=== PATIENT | female | born 1990 | race Caucasian/White ===

== ENCOUNTER 2022-05-21 10:43 | Outpatient (REF) | payer MEDICAID, SELFPAY ==
[2022-05-21 13:49] LABS: MANUAL DIFF FLAG NO
[2022-05-21 13:55] LABS: Basophils Absolute Auto 0.1 X10*3/uL (0.0-0.2); Basophils Percent Auto 0.9 % (0-2); Eosinophils Absolute Auto 0.2 X10*3/uL (0.0-0.4); Eosinophils Percent Auto 3.1 % (0-4); Hematocrit 37.5 % (37.0-47.0); Hemoglobin 11.9 g/dl (12.0-16.0); Imm Gran Abs Auto 0.02 X10*3/uL (0.00-0.03); Imm Gran Pct Auto 0.3 % (0.0-0.4); Lymphocytes Absolute Auto 2.4 X10*3/uL (1.2-4.9); Lymphocytes Percent Auto 30.8 % (20-40); Mean Corpuscular HGB Conc 31.7 g/dl (31.0-35.0); Mean Corpuscular Hemoglobin 29.7 pg (27.0-33.0); Mean Corpuscular Volume 93.5 fL (80.0-98.0); Mean Platelet Volume 11.7 fL (9.4-12.3); Monocytes Absolute Auto 0.5 X10*3/uL (0.1-1.2); Monocytes Percent Auto 5.9 % (2-11); Neutrophils Absolute Auto 4.6 x10*3/uL (2.0-8.3); Platelet Count 191 X10*3/uL (160-400); Red Blood Count 4.01 X10*6/uL (4.20-5.50); Red Cell Distribution Width 12.8 % (11.0-16.0); White Blood Count 7.8 X10*3/uL (4.8-10.8)
[2022-05-21 14:08] LABS: Alanine Aminotransferase 10 U/L (0-31); Albumin Level 4.3 g/dL (3.5-5.0); Alkaline Phosphatase 68 U/L (39-117); Anion Gap 14 (12-20); Aspartate Amino Transferase 12 U/L (5-31); Bilirubin Total 0.6 mg/dL (0.0-1.0); Blood Urea Nitrogen 12 mg/dL (9-16); Calcium 9.1 mg/dL (8.4-10.2); Carbon Dioxide 23 mmol/L (22-29); Chloride 107 mmol/L (96-108); Estimated Glomerular Filt Rate > 60; Glucose Fasting 74 mg/dL (60-99); Potassium 4.2 mmol/L (3.3-5.1); Sodium 140 mmol/L (135-145); Total Protein 6.3 g/dL (6.5-8.0)
[2022-05-21 14:28] LABS: Thyroid Stimulating Hormone 0.83 uIU/mL (0.32-4.0)
== END 2022-05-21 10:44 | disposition home or self-care (01) ==
LOC: HO.10HDL 10:43
PROVIDERS: Visit Provider Internal Medicine
DX: Z00.00 Encounter for general adult medical examination without abnormal findings (principal); F12.10 Cannabis abuse, uncomplicated; F32.9 Major depressive disorder, single episode, unspecified; Z11.3 Encounter for screening for infections with a predominantly sexual mode of transmission; Z12.4 Encounter for screening for malignant neoplasm of cervix; Z72.0 Tobacco use
CPT/HCPCS: 36415; 80053; 84443; 85025

== ENCOUNTER 2024-01-25 09:52 | Outpatient (REF) | payer MEDICAID, SELFPAY ==
--- NOTE | ~2024-01-25 | XR_ITS ---
EXAMINATION: XR KNEE, LEFT CLINICAL INFORMATION: Pain in unspecified knee COMPARISON: None available. TECHNIQUE: AP standing view both knees and lateral sunrise views of the left knee FINDINGS: No fracture. Small joint effusion. Alignment is anatomic. Joint spaces are maintained. No abnormal soft tissue calcification. Incidental note is made of a 0.9 cm osteochondroma extending off the medial aspect of the distal right femoral shaft. XR/XR knee LT 3V IMPRESSION: 1. No acute bony abnormality. 2. Small joint effusion.
== END 2024-01-25 09:53 | disposition home or self-care (01) ==
LOC: HO.HOSX 09:52
PROVIDERS: Visit Provider Physician Assistant
DX: M23.92 Unspecified internal derangement of left knee (principal); S83.512A Sprain of anterior cruciate ligament of left knee, initial encounter
CPT/HCPCS: 73562; 99212

== ENCOUNTER 2024-01-25 10:13 | Outpatient (AMB) | payer MEDICAID, SELFPAY ==
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
[2024-01-25 10:38] VITALS: BMI 30.7
== END 2024-01-25 13:17 | disposition home or self-care (01) ==
PROVIDERS: Visit Provider Physician Assistant
DX: M23.92 Unspecified internal derangement of left knee (principal); S83.512A Sprain of anterior cruciate ligament of left knee, initial encounter
CPT/HCPCS: 99204

== ENCOUNTER 2024-03-25 16:12 | Outpatient (REF) | payer MEDICAID, SELFPAY ==
--- NOTE | ~2024-03-25 | MR_ITS ---
EXAMINATION: MR KNEE WITHOUT CONTRAST, LEFT CLINICAL INFORMATION: Sprain of the ACL. Knee pain. COMPARISON: Radiographs dated 01/25/2024. TECHNIQUE: MRI of the knee without contrast was performed using routine sequences on a high-field scanner. FINDINGS: MENISCI: Medial Meniscus: There is a bucket-handle tear propagating from the posterior root through the posterior horn and body to the anterior horn approximately 1 cm from the anterior root. The bucket-handle fragment is displaced into the intercondylar notch and constitutes approximately one half of the meniscal tissue. There is a superimposed oblique horizontal tear of the orthotopic meniscal tissue at the posterior horn and body with partial extrusion of the meniscal body. Lateral Meniscus: Intact. LIGAMENTS: Cruciate: ACL is absent, consistent with a chronic tear with resorption. PCL is intact. Collateral: Intact. EXTENSOR MECHANISM: Intact. ARTICULAR CARTILAGE/BONE: Patellofemoral Compartment: Normal. Medial Compartment: Mild chondral thinning at the medial aspect of the posterior weightbearing surface with minimal subchondral sclerosis. Additional mild subchondral sclerosis at the posteromedial margin of the medial tibial plateau. Lateral Compartment: Mild chondral thinning along the posterior margin of the lateral tibial plateau. JOINT FLUID AND BURSAE: Small joint effusion and trace De Leon's cyst. MR/MR knee LT wo con IMPRESSION: 1. Chronic, complete tear of the ACL. 2. Displaced bucket-handle tear of the medial meniscus. 3. Minimal medial and lateral compartment arthrosis. 4. Small joint effusion and trace De Leon's cyst.
== END 2024-03-25 16:13 | disposition home or self-care (01) ==
LOC: HO.MRI 16:12
PROVIDERS: PCP Internal Medicine; Visit Provider Physician Assistant
DX: S83.512D Sprain of anterior cruciate ligament of left knee, subsequent encounter (principal); M23.92 Unspecified internal derangement of left knee
CPT/HCPCS: 73721